=== PATIENT | female | born 1965 | race Two or more races ===

== ENCOUNTER 2025-01-27 13:11 | Outpatient (RCR) | payer OTHER, SELFPAY ==
--- NOTE | 2025-01-27 13:36 | PT.OIERPT ---
PT OP Initial Eval Patient Information Outpatient Physical Therapy Treatment Date: 01/27/25 Visit Reasons: RT shoulder pain Medical Diagnosis: M25.511 Start of Care: 01/27/25 Date of Onset: 6 months ago Smoking Status Smoking Status: Never smoker Initial Assessment Subjective: Pt is 59 yr old arabic speaking female who reports R shoulder pain that has been constant x6 months. It has been hurting for a couple years prior to that. 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 The pain limits lifting, buttoning pants. PMH: HTN, hypothyroidism, pre-DM Imaging: Xrays with provider Pt goal: to get rid of the pain Objective: R shoulder AROM: ? FF: 95 deg ? Abd: 90 deg ? ER: 75 deg ? HBB: to R glute with pain ? Strength: 3+/5 in all planes ? PROM: pain at end-range [place] Todd: positive Full can: positive Drop arm: positive Assessment: Pt presents with high tissue irritability with OH reaching that limits ROM, strength and function consistent with RC tear/tendinopathy. Pt not likely going to meet goals due to high pain level and chronicity of ssx. PT recommends further diagnostic imaging of R shoulder such as MRI. Eval followed by HEP printout. Short Term and Group Home Goals Eval and D/C Treatment Plan Eval and D/C Procedure Charges OP PT Eval Mod Complex 30 minutes: Yes
== END 2025-02-20 23:59 | disposition home or self-care (01) ==
LOC: CPTX 13:11
PROVIDERS: PCP Physician Assistant; Referring Provider Physician Assistant; Visit Provider Physician Assistant
DX: M25.511 Pain in right shoulder (principal); I10 Essential (primary) hypertension
CPT/HCPCS: 97162

== ENCOUNTER 2025-03-25 08:13 | Outpatient (AMB) | payer OTHER, SELFPAY ==
[2025-03-25 09:15] VITALS: BP 139/86; PULSE 64; RESP 14; TEMP 36.6; O2SAT 98; BMI 23.5
--- NOTE | 2025-03-25 09:15 | GYNCLNT_ITS ---
Vital Signs 03/25/25 09:15 Height 1.52 m Height Method Stated Weight 54.601 kg Weight Measurement Method Standing Scale BMI 23.5 BP 139/86 H Blood Pressure Source Automatic Cuff Blood Pressure Location Left Upper Arm Position Sitting Respiration 14 Pulse 64 Pulse Source Monitor Temp 98 F Temp Source Oral Pulse Oximetry (%) 98 Oxygen Delivery Method Room Air Allergies/Home Meds Allergies & Medications Allergies No Known Allergies Allergy (Verified 03/25/25 09:16) Medication Reconciliation levothyroxine 25 mcg capsule 25 mcg PO QDAY 03/25/25 [History Confirmed 03/25/25] lisinopril 20 mg-hydrochlorothiazide 25 mg tablet 1 tab PO QDAY 03/25/25 [History Confirmed 03/25/25] verapamil 240 mg 24 hr capsule,extended release 240 mg PO QDAY 03/25/25 [History Confirmed 03/25/25] Intake Visit Data Collection New Patient or Established: New Patient not seen in past 3 years at [facility] (considered New) Reason for Visit:: PROLAPSE Seen by Clinical Staff ONLY (RN/MA): No Assistant Press Operator Required: No Do You Feel Safe at Home: Yes Authorities Contacted: N/A PCP or OBGYN visit in last 3 months: Yes Hx Now: No Are you currently on any form of Control: No Pain Present Currently: No Pain Scale Used: Low-Michelle/Numerical Pain scale:: 0 Smoking Status Smoking Status: Never smoker 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 1. Little interest or pleasure in doing things: not at all 2. Feeling down, depressed, or hopeless: not at all Total score: 0 PHQ-9 3. Trouble falling or staying asleep, or sleeping too much: Not at all 4. Feeling tired or having little energy: Not at all 5. Poor appetite or overeating: Not at all 6. Feeling bad about yourself - or that you are a failure or have let yourself or your family down: Not at all 7. Trouble concentrating on things, such as reading the newspaper or watching television: Not at all 8. Moving or speaking so slowly that other people could have noticed? - Or the opposite - being so fidgety or restless that you have been moving around a lot more than usual: not at all 9. Thoughts that you would be better off or of hurting yourself in some way: Not at all Total score: 0 Source: Developed by Drs. Maxime Kelly, Zenaida Cedillo, Jose Loyola and colleagues, with an educational jah from [employer]. Depression screen completed yes Social History Living Situation History Marital Status: Lives With: Family Housing: House Tobacco History Smoking Status: Never smoker Second Hand Smoke Exposure: No Alcohol History Alcohol Intake: Never Domestic Abuse History Do You Feel Safe at Home: Yes History of Present Illness HPI Narrative Emily Kapoor presents with uterine prolapse over the past couple of months, describing a sensation of a bulge in her vagina. The prolapse has been impacting her daily life, particularly given her work at a [employer] which involves physical activity. The patient denies any associated bladder issues, constipation, or bowel problems. She has a history of five pregnancies with five deliveries, including two sections with one due to failure to progress and three vaginal deliveries. The patient has chronic hypertension and hyperthyroidism. She is menopausal and reports compliance with preventive screenings, including normal pap smears and mammograms. The patient is currently taking lisinopril for chronic hypertension and levothyroxine for hyperthyroidism. Her surgical history includes two C-sections and a procedure for kidney stones. She is a 60-year-old female with an obstetric history of . 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 ROS: Genitourinary: Positive for feeling of vaginal bulge. Negative for bladder issues. Gastrointestinal: Negative for constipation, bowel problems. Exam Narrative Physical exam: Gynecologic Exam External Genitalia: Normal female genitalia without lesions, rashes, or excoriations. No vulvar masses noted. Speculum Exam: Vaginal mucosa intact with mild atrophy. No ulcerations or abnormal discharge noted. Cervix visible at the level of the introitus at rest. Pelvic Organ Prolapse Findings: * Uterine prolapse: Cervix at introitus at rest; cervix descends beyond introitus with Valsalva/straining. * Cystocele: Anterior vaginal wall bulge noted, consistent with cystocele. * Posterior compartment: No significant rectocele identified. Bimanual Exam: Uterus mobile and nontender, prolapsed into introitus. No adnexal masses palpated bilaterally. Pelvic floor tone decreased. General General Appearance: alert, in no apparent distress and healthy appearing Head Head exam: atraumatic Neck Neck exam: Present normal inspection and trachea midline Chest Chest inspection: Present normal inspection and symmetric chest wall rise External exam: Present normal external exam; Absent tenderness Neuro Neurological exam: Present oriented X3 Psych Psychiatric exam: Present normal affect and normal mood Office Procedures OB Clinic LOC & Office Proc's Nursing/Assessment Patient Status: Established Patient OB Clinic Nursing Assessment: Medication Reconciliation, Update PMH in EMR and Vital Signs OB Clinic Coordination of Care: Complex Care and Chronic Disease 1-5, Consent,records obtained, informed consent, Education Simp Pt/Fam, 1 Ins Authorization, Lab and Imaging orders, Results/Orders obtained and Staff clarify orders Established Patient Charge Established Patient Point Assignment: 120 Established Patient Point Charge: EP Level 4 (120-155) Assessment & Plan Diagnosis / Problem List (1) Uterine prolapse: Status: Acute Plan Uterine Prolapse: - Significant uterine prolapse with vaginal bulge present for couple of months. - Patient reports feeling bulge in vagina but denies associated bladder issues, constipation, or bowel problems. - Contributing factors include multiparity () and occupation involving heavy lifting. Plan: - Recommend vaginal hysterectomy with anterior-posterior repair due to patient's age and activity level. - Discuss surgical procedure details: ? Involves removing uterus and tightening bladder and back coats ? Same-day discharge from hospital ? Recovery period: 2-3 weeks with 1 month off work due to heavy lifting requirements ? Expected pain for first 3-5 days - Alternative option discussed: pessary insertion with silicone cube requiring monthly cleaning. - Obtain insurance approval for surgery (approximately 2 weeks). - Tentatively schedule surgery for early April. - Clinic to call patient to coordinate surgery date. - Patient advised to consider options and ask further questions before operation. - Informed patient that bladder tightening should help with frequent urination.
== END 2025-03-25 09:58 | disposition home or self-care (01) ==
PROVIDERS: PCP Physician Assistant; Referring Provider Physician Assistant; Supervising Provider Obstetrics & Gynecology; Visit Provider Obstetrics & Gynecology
DX: N81.4 Uterovaginal prolapse, unspecified (principal); I10 Essential (primary) hypertension; E05.90 Thyrotoxicosis, unspecified without thyrotoxic crisis or storm; Z79.899 Other long term (current) drug therapy; Z79.890 Hormone replacement therapy
CPT/HCPCS: 99214; G0463

== ENCOUNTER 2025-04-29 11:17 | Outpatient (AMB) | payer OTHER, SELFPAY ==
[2025-04-29 11:20] VITALS: BP 134/81; PULSE 64; RESP 14; TEMP 36.6; O2SAT 98; BMI 24.0
--- NOTE | 2025-04-29 11:20 | AMB.GYNCLNOT ---
Vital Signs 04/29/25 11:20 Height 1.52 m Height Method Stated Weight 55.565 kg Weight Measurement Method Standing Scale BMI 24.0 BP 134/81 H Blood Pressure Source Automatic Cuff Blood Pressure Location Left Upper Arm Position Sitting Respiration 14 Pulse 64 Pulse Source Monitor Temp 97.8 F Temp Source Oral Pulse Oximetry (%) 98 Oxygen Delivery Method Room Air Allergies/Home Meds Allergies & Medications Allergies No Known Allergies Allergy (Verified 04/29/25 11:30) Medication Reconciliation levothyroxine 25 mcg capsule 25 mcg PO QDAY 03/25/25 [History Confirmed 04/29/25] lisinopril 20 mg-hydrochlorothiazide 25 mg tablet 1 tab PO QDAY 03/25/25 [History Confirmed 04/29/25] verapamil 240 mg 24 hr capsule,extended release 240 mg PO QDAY 03/25/25 [History Confirmed 04/29/25] Intake Visit Data Collection New Patient or Established: Established Patient (seen at [facility] within 3 years) Reason for Visit:: PRE OP Seen by Clinical Staff ONLY (RN/MA): No Tank Pumper Required: No Do You Feel Safe at Home: Yes Authorities Contacted: N/A PCP or OBGYN visit in last 3 months: Yes Hx Now: No Are you currently on any form of Control: No Pain Present Currently: No Pain Scale Used: Low-Michelle/Numerical Pain scale:: 0 Smoking Status Smoking Status: Never smoker 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 Menopausal: Yes If menopausal, at what age did it occur: 49 Currently sexually active: No If not currently sexually active, have you ever been sexually active: Yes NETWORK SUPPORT MANAGER: Past Medical History Past Medical History: No Hx Neurological Disorders, Yes Hx Hypothyroidism, Yes Hx Cardiac Disorders, Yes Hx Hypertension, No Hx Cancer, No Hx Blood Disorders, No Hx Gastrointestinal Disorders, No Hx Renal Disease, No Hx Diabetes Mellitus Type 1 and No Hx Diabetes Mellitus Type 2 Questionnaires Covid-19 Vaccine Questionnaire Has patient been vacinated for Covid-19 Have you been vacinated for Covid-19: Yes PHQ-9 PHQ-2 Over the last 2 weeks, how often have you been bothered by any of the following problems? 1. Little interest or pleasure in doing things: not at all 2. Feeling down, depressed, or hopeless: not at all Total score: 0 PHQ-9 3. Trouble falling or staying asleep, or sleeping too much: Not at all 4. Feeling tired or having little energy: Not at all 5. Poor appetite or overeating: Not at all 6. Feeling bad about yourself - or that you are a failure or have let yourself or your family down: Not at all 7. Trouble concentrating on things, such as reading the newspaper or watching television: Not at all 8. Moving or speaking so slowly that other people could have noticed? - Or the opposite - being so fidgety or restless that you have been moving around a lot more than usual: not at all 9. Thoughts that you would be better off or of hurting yourself in some way: Not at all Total score: 0 Source: Developed by Drs. Maxime Kelly, Zenaida Cedillo, Jose Loyola and colleagues, with an educational jah from [employer]. Depression screen completed yes Social History Living Situation History Lives With: Family Housing: House Tobacco History Smoking Status: Never smoker Second Hand Smoke Exposure: No Alcohol History Alcohol Intake: Never Domestic Abuse History Do You Feel Safe at Home: Yes History of Present Illness HPI Narrative Emily Kapoor presents for a preoperative visit in preparation for a total vaginal hysterectomy with anterior-posterior repair scheduled in 2 days. She has uterine prolapse, with the uterus pulling everything down, which will be addressed through the combined surgical procedure. 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 ROS: Negative except as stated above, limited to NETWORK SUPPORT MANAGER and pertinent complaints. Exam General General Appearance: alert, in no apparent distress and healthy appearing Head Head exam: atraumatic Neck Neck exam: Present normal inspection and trachea midline Chest Chest inspection: Present normal inspection and symmetric chest wall rise External exam: Present normal external exam; Absent tenderness Neuro Neurological exam: Present oriented X3 Psych Psychiatric exam: Present normal affect and normal mood Office Procedures OBC Clinic LOC & Office Proc's Nursing/Assessment Patient Status: Established Patient OB Clinic Nursing Assessment: Medication Reconciliation, Update PMH in EMR and Vital Signs OB Clinic Coordination of Care: Complex Care and Chronic Disease 1-5, Consent,records obtained, informed consent, Education Simp Pt/Fam, 1 Ins Authorization, Results/Orders obtained and Staff clarify orders Established Patient Charge Established Patient Point Assignment: 105 Established Patient Point Charge: EP Level 3 (80-115) Assessment & Plan Diagnosis / Problem List (1) Uterine prolapse: Status: Acute Plan Uterine Prolapse: - Patient has uterine prolapse with the uterus pulling everything down, requiring surgical intervention. - The uterus is described as small in size. Plan: - Total vaginal hysterectomy with anterior-posterior repair scheduled for (May 02). - Procedure will be performed entirely vaginally with possible laparoscopic assistance if needed (approximately 1% chance if scar tissue or adhesions encountered). - Patient to arrive 2 hours before surgery for preparation including IV placement and laboratory studies. - Procedure duration approximately 1-1.5 hours. - Postoperative packing with medicated sponge to promote healing, to be removed evening of surgery. - Overnight hospital stay for observation given patient's age and pain management. - Discharge criteria: able to urinate, eat, and ambulate to bathroom. - Postoperative activity restrictions: ? First 5-6 days: bed rest (may shower, sit to eat, watch TV) ? After 1 week: may drive, go to store, walk 20-25 minutes at a time ? After 2 weeks: most restrictions lifted except no lifting >30 pounds ? After 1 month: all restrictions removed, may return to work - Initial return to work on light duty given employment at [employer]. - Follow-up visits every 2 weeks until cleared. - Work excuse note provided for 1 month with extension as needed. - Patient counseled that ovaries will not be removed so hormones unchanged. - Expected postoperative course includes pressure sensation from dissolving sutures over 45 days. - No significant bleeding expected postoperatively.
== END 2025-04-29 11:44 | disposition home or self-care (01) ==
LOC: HODSOBC 11:17
PROVIDERS: PCP Physician Assistant; Referring Provider Physician Assistant; Supervising Provider Obstetrics & Gynecology; Visit Provider Obstetrics & Gynecology
DX: N81.4 Uterovaginal prolapse, unspecified (principal)
CPT/HCPCS: 99213; G0463

== ENCOUNTER 2025-05-01 13:49 | Observation (INO) | payer OTHER, SELFPAY ==
[2025-04-25 10:11] VITALS: BMI 25.2
--- NOTE | 2025-04-25 10:47 | EKG_ITS ---
[facility] Test Date: 2025-04-25 Pat Name: MOMO DUTTA Department: Room: - Gender: Female Pharmacy Stock Clerk: MT : [id number] Requested By: Matt Knutson Order Number: [id number] Reading MD: Matt Knutson Measurements Intervals [place] Rate: 54 P: 50 NV: 188 QRS: 21 QRSD: 101 T: 52 QT: 448 QTc: 427 Interpretive Statements SINUS BRADYCARDIA No previous ECG available for comparison /store/S0/[id number].pdf
[2025-04-25 11:35] LABS: Basophils # (Auto) 0.0 Thou/mm3 (0.0-0.2); Basophils % (Auto) 0 % (0-2.5); Eosinophils # (Auto) 0.2 Thou/mm3 (0.0-0.5); Eosinophils % (Auto) 2 % (0-10); Hematocrit 41.1 % (36.0-46.0); Hemoglobin 13.5 g/dL (12.0-16.0); Immature Granulocytes Auto 0.02 Thou/mm3 (0.00-0.00); Lymphocytes # (Auto) 3.3 Thou/mm3 (1.0-4.8); Lymphocytes % (Auto) 41 % (10-50); Mean Corpuscular HGB Conc 32.8 g/dl (31.0-37.0); Mean Corpuscular Hemoglobin 30.3 pg (25.0-35.0); Mean Corpuscular Volume 92 fL (80-100); Monocytes # (Auto) 0.6 Thou/mm3 (0.0-0.8); Monocytes % (Auto) 8 % (0-12); Neutrophils # (Auto) 4.0 Thou/mm3 (1.8-7.7); Neutrophils % (Auto) 49 % (37-80); Nucleated Red Blood Cell # 0.00 Thou/mm3 (0.00-0.00); Nucleated Red Blood Cell % 0 /100 WBC (0); Platelet Count 288 Thou/mm3 (140-440); RDW Standard Deviation 45.6 fL (36.4-46.3); Red Blood Count 4.45 Miln/mm3 (4.00-5.20); White Blood Count 8.1 Thou/mm3 (3.6-11.0)
[2025-04-25 11:51] LABS: Alanine Aminotransferase 13 U/L (10-49); Albumin, Serum 4.3 gm/dL (3.4-4.8); Albumin/Globulin Ratio 1.6 (1.2-2.2); Alkaline Phosphatase 101 U/L (46-116); Anion Gap 8 (7-16); Aspartate Amino Transferase 15 U/L (0-34); BUN/Creatinine Ratio 30 Ratio (12-20); Bilirubin,Total 0.5 mg/dL (0.3-1.2); Blood Urea Nitrogen 18 mg/dL (9-23); Calcium 9.3 mg/dL (8.3-10.6); Calcium (Corrected) 9.3 mg/dL (8.5-10.1); Carbon Dioxide 29.1 mMol/L (20.0-31.0); Chloride 106 mMol/L (98-107); Creatinine (Component) 0.6 mg/dL (0.6-1.3); Estimated Creatinine Clearance 72.3 mL/min (>60); Globulin 2.7 gm/dL (2.3-3.5); Glucose 87 mg/dL (74-106); Osmolality,Calculated 285 (275-295); Potassium 3.3 mMol/L (3.4-5.1); Sodium 143 mMol/L (136-145); Total Protein 7.0 gm/dL (5.7-8.2); eGFR > 60 See Note
[2025-05-01] VITALS (12 sets, daily range): BP systolic 108–161; BP diastolic 68–102; PULSE 50–76; RESP 10–20; TEMP 36.1–36.8; O2SAT 93–100; BMI 23.6
[2025-05-01] MEDS: RINGERS LACTATED 1000 ML 1,000 ML 20 ML IV (09:24)
--- NOTE | 2025-05-01 11:46 | PD.GYNPROC ---
Operative Note - MD SENIOR RESEARCH SCIENTIST Procedure Date of procedure: 05/01/25 Procedure Performed: Total vaginal hysterectomy and cystocele repair Indication: Third-degree uterine prolapse with cystocele Anesthesia type: General Procedure description: Informed consent was obtained and the patient was brought to the operating room. Identity was verified using two patient identifiers. General anesthesia was administered and the patient was placed in lithotomy position. The perineum and vagina were prepped and draped in the usual sterile fashion. A surgical timeout was performed. A weighted speculum was placed in the vagina. The cervix was visualized and grasped with a double-tooth tenaculum, then placed under gentle traction. Dilute vasopressin was injected circumferentially around the cervicovaginal junction. A circumferential incision was made with the Bovie cautery. A combination of sharp and blunt dissection was used to separate the vaginal mucosa up to the bladder reflection anteriorly. The same dissection was performed posteriorly, and the peritoneum was entered bluntly through the posterior cul-de-sac. A long duckbill weighted speculum was inserted posteriorly for exposure. Dissection was started on the left side. The left uterosacral ligament was clamped and divided using the ENSEAL device, followed by the left uterine vessels, and finally the left fallopian tube. The same procedure was performed on the right side: right uterosacral, right uterine vessels, and right fallopian tube were clamped and divided sequentially. The uterus was then flipped anteriorly with careful attention to protecting the bladder. The bladder peritoneum was divided using the ENSEAL, and the specimen was freed and handed off the field for pathology. The vaginal cuff was inspected and closed using 0 Vicryl in a running locked fashion. Hemostasis was confirmed. Attention was now turned to the cystocele repair portion of the procedure. The anterior vaginal wall was placed under traction, and dilute vasopressin was injected beneath the mucosa. A midline linear incision was made beginning just below the urethral meatus, extending 5 mm short of the vaginal cuff. The vaginal mucosa was sharply dissected off the underlying bladder using Metzenbaum scissors, with care taken to preserve bladder integrity. Dissection was performed bilaterally. Excess mucosa was trimmed from both sides. The underlying fascia was plicated in the midline, and the vaginal mucosa was reapproximated using 2-0 Vicryl in a running fashion. Hemostasis was satisfactory. Vaginal estrogen cream was applied to the repair site, and the vagina was packed with Kerlix gauze. All instruments were withdrawn. The patient was awakened from anesthesia and transferred to the recovery room in stable condition. All instrument, sponge, and lap counts were correct ?2. Estimated blood loss (ml): 50 Complications: none Surgical staff Operation Date: 05/01/25 10:30 Case Staff ELECTRONIC EQUIPMENT REPAIRER: Gianni Ashton RN First Assistant: Lexy Burton Diagnosis Discharge Diagnosis (1) Uterine prolapse: Status: Acute (2) Cystocele: Status: Acute Problem List Completed Was Problem List Reviewed/Reconciled?: Yes
[2025-05-01] MEDS: SODIUM CHLORIDE 0.9% 1000 ML 1,000 ML 200 ML IV (12:29)
--- NOTE | 2025-05-01 12:30 | SUR.PHASEI ---
pt tolerating ice chips without difficulty swallowing or n/v
--- NOTE | 2025-05-01 12:42 | SUR.PHASEI ---
attempted to call report, nurse unable to take report at this time, nurse stated she will call back in 30-40 minutes
[2025-05-01] MEDS: SODIUM CHLORIDE 0.9% 1000 ML 1,000 ML 75 ML IV (13:31)
--- NOTE | 2025-05-01 13:41 | SUR.PHASEI ---
pt awake, alert, able to follow commands, breathing unlabored, vaginal packing intact with peripad in place-no bleeding noted, report called to Luke FOSS, pt transferred to room at this time.
[2025-05-01] MEDS: KETOROLAC INJ 30 MG/ML VIAL IVP (17:53)
[2025-05-01] MEDS: ACETAMINOPHEN IVPB 1,000 MG/100 ML VIAL 250 MG IV (17:54)
[2025-05-01] MEDS: ONDANSETRON INJ 2 MG/ML INJ 2 ML 4 MG IV (17:57)
--- NOTE | 2025-05-01 19:28 | PC.NURSE ---
Dr. Allen arrived on unit to follow up with patient. Dr. Allen removed packing from patient's perineal area and per Dr. Allen to remove cathether.
[2025-05-01] MEDS: Milk Of Magnesia Susp 30 ML UDC PO (20:07)
[2025-05-02] VITALS (8 sets, daily range): BP systolic 99–122; BP diastolic 62–79; PULSE 60–72; RESP 17–95; TEMP 36.1–36.7; O2SAT 94–98
[2025-05-02] MEDS: ONDANSETRON INJ 2 MG/ML INJ 2 ML 4 MG IV ×2 (00:07→06:13)
[2025-05-02] MEDS: ACETAMINOPHEN IVPB 1,000 MG/100 ML VIAL 250 MG IV ×2 (00:07→06:12)
[2025-05-02] MEDS: KETOROLAC INJ 30 MG/ML VIAL IVP ×2 (00:07→06:13)
[2025-05-02 05:48] LABS: Basophils # (Auto) 0.0 Thou/mm3 (0.0-0.2); Basophils % (Auto) 0 % (0-2.5); Eosinophils # (Auto) 0.1 Thou/mm3 (0.0-0.5); Eosinophils % (Auto) 1 % (0-10); Hematocrit 36.0 % (36.0-46.0); Hemoglobin 12.0 g/dL (12.0-16.0); Immature Granulocytes Auto 0.05 Thou/mm3 (0.00-0.00); Lymphocytes # (Auto) 2.9 Thou/mm3 (1.0-4.8); Lymphocytes % (Auto) 21 % (10-50); Mean Corpuscular HGB Conc 33.3 g/dl (31.0-37.0); Mean Corpuscular Hemoglobin 30.4 pg (25.0-35.0); Mean Corpuscular Volume 91 fL (80-100); Monocytes # (Auto) 0.9 Thou/mm3 (0.0-0.8); Monocytes % (Auto) 6 % (0-12); Neutrophils # (Auto) 10.2 Thou/mm3 (1.8-7.7); Neutrophils % (Auto) 72 % (37-80); Nucleated Red Blood Cell # 0.00 Thou/mm3 (0.00-0.00); Nucleated Red Blood Cell % 0 /100 WBC (0); Platelet Count 215 Thou/mm3 (140-440); RDW Standard Deviation 43.8 fL (36.4-46.3); Red Blood Count 3.95 Miln/mm3 (4.00-5.20); White Blood Count 14.2 Thou/mm3 (3.6-11.0)
[2025-05-02 06:07] LABS: Anion Gap 9 (7-16); BUN/Creatinine Ratio 22 Ratio (12-20); Blood Urea Nitrogen 11 mg/dL (9-23); Calcium 8.7 mg/dL (8.3-10.6); Carbon Dioxide 28.7 mMol/L (20.0-31.0); Chloride 98 mMol/L (98-107); Creatinine (Component) 0.5 mg/dL (0.6-1.3); Estimated Creatinine Clearance 91.8 mL/min (>60); Glucose 84 mg/dL (74-106); Osmolality,Calculated 270 (275-295); Potassium 3.3 mMol/L (3.4-5.1); Sodium 136 mMol/L (136-145); eGFR > 60 See Note
[2025-05-02] MEDS: LEVOTHYROXINE SODIUM 25 MCG TABLET PO (06:13)
[2025-05-02] MEDS: DOCUSATE SOD 100 MG CAPSULE PO (08:12)
--- NOTE | 2025-05-02 09:42 | PC.SS ---
Patient Emily Aguilar is a 60 Year old female admitted for Total Vag. SS met with patient at bedside to discuss discharge plan and verify demographic information. Patient reports she lives at home with family. Patient reports her , Rinku Kapoor is her surrogate decision maker, [phone]. Patient is able to complete all ADL's independently and does not utilize any source of DME to assist with ambulation. Choice of pharmacy is [facility]. PCP Tessa Botello. At time of discharge patient will return back home. Next of kin: Rinku Kapoor Discharge plan: Home
--- NOTE | 2025-05-02 09:56 | PD.GYNPROG ---
Documentation for date of: 05/02/25 ELECTRONIC BENCH TECHNICIAN Subjective Subjective Interval history: Patient evaluated at bedside. Doing well this morning. Vaginal packing removed. Minimal amount of bloodstained discharge. Gabriel catheter was removed and patient was able to void. Denies any chest pain or shortness of breath or any other problems Exam Vital Signs Temp Pulse Resp BP Pulse Ox O2 Del Method O2 Flow Rate 97.0 F 62 17 122/77 98 Room Air 3 05/02/25 08:00 05/02/25 08:13 05/02/25 08:00 05/02/25 08:13 05/02/25 08:00 05/02/25 08:00 05/01/25 12:12 Constitutional Constitutional: no acute distress Routine HEENT Exam Head: Present normocephalic and atraumatic Eye: Present EOMI and PERRL ENT: Present mucous membranes moist Routine Neck Exam Neck: Present supple and trachea midline Routine Respiratory Exam Respiratory: Present chest non-tender, lungs clear, normal breath sounds and no resp distress Routine Cardiovascular Exam Cardiovascular: Present RRR Routine Abdominal Exam Abdominal: Present soft and normoactive bowel sounds Routine Extremities Exam Extremities: Present full ROM Routine Skin Exam Skin: Present intact and dry Routine Neurological Exam Neurological: Present alert, oriented X3 and CN II-XII intact Routine Psychiatric Exam Psychiatric: Present normal affect and normal thought process Urinary Catheter Management Cath placed during this visit: no ELECTRONIC BENCH TECHNICIAN - PN: Obj Data Labs 05/02/25 04:25 05/02/25 04:25 Labs: Laboratory Results - last 24 hr 05/02/25 04:25 WBC 14.2 H D RBC 3.95 L Hgb 12.0 Hct 36.0 MCV 91 MCH 30.4 MCHC 33.3 RDW Std Deviation 43.8 Plt Count 215 D Neut % (Auto) 72 Lymph % (Auto) 21 [place]aver % (Auto) 6 Eos % (Auto) 1 Baso % (Auto) 0 Neut # (Auto) 10.2 H Lymph # (Auto) 2.9 Beaver # (Auto) 0.9 H Eos # (Auto) 0.1 Baso # (Auto) 0.0 Immature Gran # (Auto) 0.05 H Absolute Nucleated RBC 0.00 Immature Gran % 0 Nucleated RBC % 0 Sodium 136 Potassium 3.3 L Chloride 98 Carbon Dioxide 28.7 Anion Gap 9 BUN 11 Creatinine 0.5 L Estim Creat Clear Calc 91.8 eGFR > 60 BUN/Creatinine Ratio 22 H Glucose 84 Calculated Osmolality 270 L Calcium 8.7 ELECTRONIC BENCH TECHNICIAN - A/P Assessment and plan (1) Uterine prolapse: Status: Acute (2) Cystocele: Status: Acute Assessment and plan: Patient is postoperative day #1 status post total vaginal hysterectomy and cystocele repair Discharge home today. Discharge instructions were reviewed with the patient. Follow-up in the office in 2 weeks. Postoperative Procedures: Procedures Operation Date: 05/01/25 10:30 Actual Procedure Side Surgeon p Hysterectomy, Vaginal w/ Anterior Repair Jeffy Allen MD Time Spent With Patient Time: Total time spent is greater than 50% in coordination of care (as documented) at patient's floor/unit and/or counseling patient: Time with patient: less than 15 minutes
--- NOTE | 2025-05-02 10:02 | ESDS_ITS ---
Planned Discharge Date 05/02/25 DS: Providers Provider Date of admission: 05/01/25 13:49 Primary care physician: Tessa Botello PA-C Admitting Provider: Jeffy Allen MD Attending Provider on Admission: Jeffy Allen MD Attending Provider on DC: Jeffy Allen MD Discharging Provider: Jeffy Allen MD DS: Diagnosis Discharge Diagnosis (1) Cystocele: Status: Acute (2) Uterine prolapse: Status: Acute Problem List Completed Was Problem List Reviewed/Reconciled?: Yes Hospital Course Hospital Course Hospital course: Patient evaluated at bedside. Doing well this morning. Vaginal packing removed. Minimal amount of bloodstained discharge. Gabriel catheter was removed and patient was able to void. 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 Temp Pulse Resp BP Pulse Ox O2 Del Method O2 Flow Rate 97.0 F 62 17 122/77 98 Room Air 3 05/02/25 08:00 05/02/25 08:13 05/02/25 08:00 05/02/25 08:13 05/02/25 08:00 05/02/25 08:00 05/01/25 12:12 Discharge Plan Plan Patient Disposition: HOME (Self Care) Patient condition on transfer: Stable Prescriptions/Referrals Prescriptions/Med Rec: New hydrocodone-acetaminophen 5-325 mg tablet 1 tab PO Q6H MDD 4 PRN (Reason: pain) 5 Days Qty: 20 0RF docusate sodium [Stool Softener] 100 mg capsule 100 mg PO QDAY 30 Days Qty: 30 0RF ibuprofen 600 mg tablet 600 mg PO Q6H MDD 4 PRN (Reason: fever or pain) 10 Days Qty: 40 0RF Continued levothyroxine 25 mcg capsule 25 mcg PO QDAY lisinopril-hydrochlorothiazide 20-25 mg tablet 1 tab PO QDAY verapamil 240 mg capsule,ext rel. pellets 24 hr 240 mg PO QDAY Referrals: Jeffy Allen MD [Physician, [facility]] Tessa Botello PA-C [Primary Care Provider, Family Practice] Patient/Caregiver Discharge Instructions Meds to Beds: Yes Discharge Activity: activity as tolerated Print Language: Malay Stand Alone Forms: [employer] Award Info., Patient Portal Info Letter, Work/Release Restrictions Discharge Order Discharge Orders: Discharge (Routine); Ordered 05/02/25 Ordered By: Jeffy Allen
--- NOTE | 2025-05-02 12:22 | CHAP ---
Patient was visited by the Spiritual care Volunteer who prayed silently for them. (Volunteer was in the hospital from 10:20-12:22)
== END 2025-05-02 12:00 | disposition home or self-care (01) ==
LOC: S3SX 05-02 08:43
PROVIDERS: Admitting Provider Obstetrics & Gynecology; PCP Physician Assistant; Referring Provider Obstetrics & Gynecology; Visit Provider Obstetrics & Gynecology
PROC: (CPT 58260; principal; 2025-05-01 10:15)
DX: N81.3 Complete uterovaginal prolapse (principal); Z01.810 Encounter for preprocedural cardiovascular examination
CPT/HCPCS: 58260; 36415; 80048; 80053; 85025; 86850; 86900; 86901; 93005; 96365; 96375; 96376; A4217; A4649; G0378; J0131; J0690; J1171; J1885; J2250; J2274; J2312; J2405; J2598; J2704; J3010; J3490; J7030; J7120; A9270; J2270

== ENCOUNTER 2025-05-16 09:19 | Outpatient (AMB) | payer OTHER, SELFPAY ==
[2025-05-16 09:43] VITALS: BP 138/88; PULSE 75; RESP 18; TEMP 36.2; O2SAT 97
--- NOTE | 2025-05-16 09:43 | GYNCLNT_ITS ---
Vital Signs 05/16/25 09:43 Weight 55.508 kg Weight Measurement Method Standing Scale BP 138/88 H Blood Pressure Source Automatic Cuff Blood Pressure Location Left Upper Arm Position Sitting Respiration 18 Pulse 75 Pulse Source Monitor Temp 97.2 F Temp Source Oral Pulse Oximetry (%) 97 Oxygen Delivery Method Room Air Allergies/Home Meds Allergies & Medications Allergies No Known Allergies Allergy (Verified 05/16/25 09:44) Medication Reconciliation levothyroxine 25 mcg capsule 25 mcg PO QDAY 03/25/25 [History Confirmed 05/16/25] lisinopril 20 mg-hydrochlorothiazide 25 mg tablet 1 tab PO QDAY 03/25/25 [History Confirmed 05/16/25] verapamil 240 mg 24 hr capsule,extended release 240 mg PO QDAY 03/25/25 [History Confirmed 05/16/25] docusate sodium 100 mg capsule (Stool Softener) 100 mg PO QDAY 30 days #30 caps 05/02/25 [Rx Confirmed 05/16/25] estradiol 0.01% (0.1 mg/gram) vaginal cream 1 g vaginal QDAY 30 days #42.5 grams 05/16/25 [Rx] levofloxacin 500 mg tablet 500 mg PO QDAY 7 days #7 tabs 05/16/25 [Rx] Intake Visit Data Collection New Patient or Established: Established Patient (seen at [facility] within 3 years) Reason for Visit:: POST O P Seen by Clinical Staff ONLY (RN/MA): No Mainframe Systems Programmer Required: No Do You Feel Safe at Home: Yes Authorities Contacted: N/A PCP or OBGYN visit in last 3 months: Yes Date of Last PCP or OBGYN visit: 05/23/25 Hx Now: Yes Are you currently on any form of Control: No Pain Present Currently: No Pain Scale Used: Low-Michelle/Numerical Smoking Status Smoking Status: Never smoker Immunizations Flu Vaccine in the Last 12 Months: No Flu Vaccine Exclusion Criteria: No Exclusion Criteria 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 Menstrual regularity: regular Flow: normal Monthly: Yes Menopausal: No Currently sexually active: No 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 1. Little interest or pleasure in doing things: not at all 2. Feeling down, depressed, or hopeless: not at all Total score: 0 PHQ-9 3. Trouble falling or staying asleep, or sleeping too much: Not at all 4. Feeling tired or having little energy: Not at all 5. Poor appetite or overeating: Not at all 6. Feeling bad about yourself - or that you are a failure or have let yourself or your family down: Not at all 7. Trouble concentrating on things, such as reading the newspaper or watching television: Not at all 8. Moving or speaking so slowly that other people could have noticed? - Or the opposite - being so fidgety or restless that you have been moving around a lot more than usual: not at all 9. Thoughts that you would be better off or of hurting yourself in some way: Not at all Total score: 0 If you checked off any problems, how difficult have these problems made it for you to do your work, take care of things at home, or get along with other people?: not difficult at all Source: Developed by Drs. Maxime Kelly, Zenaida Cedillo, Jose Loyola and colleagues, with an educational jah from [employer]. Depression screen completed yes Social History Living Situation History Marital Status: Single Lives With: Family Housing: House Tobacco History Smoking Status: Never smoker Second Hand Smoke Exposure: No Alcohol History Alcohol Intake: Never Domestic Abuse History Do You Feel Safe at Home: Yes History of Present Illness HPI Narrative Emily Kapoor presents with pain when urinating 2 weeks following total vaginal hysterectomy with cystocele repair performed on May 01, 2025. She describes the pain as a squeezing sensation that occurs every time she tries to urinate. She also noticed a white area or discharge in one specific spot, which she first observed last week following her surgery. She has a history of total vaginal hysterectomy with cystocele repair on May 01, 2025. The patient is currently on medical leave from work, with disability coverage for 4 weeks post-surgery, and anticipates returning to work June 23. ROS: Genitourinary: Positive for pain with urination. Exam Narrative Physical exam: - Skin: White discoloration noted in genital area consistent with instrument contact purcell from recent surgical procedure. Office Procedures OBC Clinic LOC & Office Proc's Nursing/Assessment Patient Status: Established Patient OB Clinic Nursing Assessment: Medication Reconciliation, Update PMH in EMR and Vital Signs OB Clinic Coordination of Care: Consent,records obtained, informed consent, Education Simp Pt/Fam, Lab and Imaging orders, Results/Orders obtained and Staff clarify orders Established Patient Charge Established Patient Point Assignment: 80 Established Patient Point Charge: EP Level 3 (80-115) Assessment & Plan Diagnosis / Problem List (1) Postmenopause atrophic vaginitis: Status: Acute (2) Urinary tract infection, site not specified: Status: Acute Plan Postoperative dysuria: - Pain with urination 2 weeks following total vaginal hysterectomy with cystocele repair. - Expected given the bladder repair component of the surgery, with the bladder prolapse repair area remaining sore and painful for up to a month postoperatively. - Dysuria manifests as a squeezing sensation during urination. Plan: - Prescribe antibiotic for urinary tract infection prevention. - Prescribe estrogen hormone cream for topical application to speed healing in the surgical area. - Patient to use cream on the outside. Postoperative vaginal findings: - White discharge/appearance on one side of the vaginal area since last week. - Physical examination revealed findings consistent with instrument contact purcell from surgical retractors used during the hysterectomy procedure. - [place] purcell are from rubbing against instruments used to maintain visualization during surgery and are not indicative of infection. Plan: - Reassurance provided that findings are normal postoperative changes. - Expected resolution by next visit in 2 weeks. Postoperative recovery and work status: - Patient is 2 weeks postoperative from total vaginal hysterectomy with cystocele repair. - Current disability period is 4 weeks from surgery date. - Patient requires work documentation and potential extension of leave. Plan: - Provide work note for current absence. - Plan to extend leave through May with return to work June 23. - Patient to bring disability paperwork when closer to 4-week afsaneh for comp letion. - Follow-up visit scheduled in 2 weeks for postoperative check.
== END 2025-05-16 10:06 | disposition home or self-care (01) ==
LOC: HODSOBC 09:19
PROVIDERS: PCP Physician Assistant; Referring Provider Physician Assistant; Supervising Provider Obstetrics & Gynecology; Visit Provider Obstetrics & Gynecology
DX: N95.2 Postmenopausal atrophic vaginitis (principal); N39.0 Urinary tract infection, site not specified; I10 Essential (primary) hypertension; E03.9 Hypothyroidism, unspecified; Z90.710 Acquired absence of both cervix and uterus; Z98.890 Other specified postprocedural states; Z79.890 Hormone replacement therapy; Z79.899 Other long term (current) drug therapy
CPT/HCPCS: 99213; G0463

== ENCOUNTER 2025-05-27 09:31 | Outpatient (AMB) | payer OTHER, SELFPAY ==
[2025-05-27 09:42] VITALS: BP 132/79; PULSE 66; RESP 18; TEMP 36.6; O2SAT 97; BMI 23.8
--- NOTE | 2025-05-27 09:42 | AMB.GYNCLNOT ---
Vital Signs 05/27/25 09:42 Height 1.52 m Height Method Stated Weight 54.941 kg Weight Measurement Method Standing Scale BMI 23.8 BP 132/79 H Blood Pressure Source Automatic Cuff Blood Pressure Location Right Upper Arm Position Sitting Respiration 18 Pulse 66 Pulse Source Monitor Temp 97.8 F Temp Source Temporal Artery Scan Pulse Oximetry (%) 97 Oxygen Delivery Method Room Air Allergies/Home Meds Allergies & Medications Allergies No Known Allergies Allergy (Verified 05/27/25 09:44) Medication Reconciliation levothyroxine 25 mcg capsule 25 mcg PO QDAY 03/25/25 [History Confirmed 05/27/25] lisinopril 20 mg-hydrochlorothiazide 25 mg tablet 1 tab PO QDAY 03/25/25 [History Confirmed 05/27/25] verapamil 240 mg 24 hr capsule,extended release 240 mg PO QDAY 03/25/25 [History Confirmed 05/27/25] docusate sodium 100 mg capsule (Stool Softener) 100 mg PO QDAY 30 days #30 caps 05/02/25 [Rx Confirmed 05/27/25] estradiol 0.01% (0.1 mg/gram) vaginal cream 1 g vaginal Q3D 30 days #42.5 grams 05/27/25 [Rx] Intake Visit Data Collection New Patient or Established: Established Patient (seen at [facility] within 3 years) Reason for Visit:: POST OP FOLLOW UP Seen by Clinical Staff ONLY (RN/MA): No Maritime Pilot Required: No Do You Feel Safe at Home: Yes Authorities Contacted: N/A PCP or OBGYN visit in last 3 months: Yes Date of Last PCP or OBGYN visit: 05/16/25 Hx Now: Yes Are you currently on any form of Control: No Pain Present Currently: No Pain Scale Used: Low-Michelle/Numerical Pain scale:: 0 Smoking Status Smoking Status: Never smoker Immunizations Flu Vaccine in the Last 12 Months: No Flu Vaccine Exclusion Criteria: No Exclusion Criteria 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 1. Little interest or pleasure in doing things: not at all 2. Feeling down, depressed, or hopeless: not at all Total score: 0 PHQ-9 3. Trouble falling or staying asleep, or sleeping too much: Not at all 4. Feeling tired or having little energy: Not at all 5. Poor appetite or overeating: Not at all 6. Feeling bad about yourself - or that you are a failure or have let yourself or your family down: Not at all 7. Trouble concentrating on things, such as reading the newspaper or watching television: Not at all 8. Moving or speaking so slowly that other people could have noticed? - Or the opposite - being so fidgety or restless that you have been moving around a lot more than usual: not at all 9. Thoughts that you would be better off or of hurting yourself in some way: Not at all Total score: 0 If you checked off any problems, how difficult have these problems made it for you to do your work, take care of things at home, or get along with other people?: not difficult at all Source: Developed by Drs. Maxime Kelly, Zenaiad Cedillo, Jose Loyola and colleagues, with an educational jah from [employer]. Depression screen completed yes Social History Living Situation History Marital Status: Unknown Lives With: Family Housing: House Tobacco History Smoking Status: Never smoker Second Hand Smoke Exposure: No Alcohol History Alcohol Intake: Never Domestic Abuse History Do You Feel Safe at Home: Yes History of Present Illness HPI Narrative Emily Kapoor presents for a post-operative follow-up visit after bladder prolapse repair surgery. The patient completed her prescribed antibiotic course as directed. She experienced some bleeding following the surgery, which appears to be part of the normal healing process. The patient reports bladder discomfort, which is expected during the recovery period as the surgical site continues to heal. She was previously prescribed an estrogen ointment but has not yet obtained it from the pharmacy. She has a history of bladder prolapse repair surgery which is recent and currently in the healing process. The patient finished taking her antibiotic. She has disability forms and appears to be seeking work disability extension. 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 Exam Narrative Physical exam: - Gynecologic: Surgical site examined. No evidence of infection noted. Healing process appears appropriate post-surgery. Some bleeding observed, consistent with post-surgical healing. General General Appearance: alert, in no apparent distress and healthy appearing Head Head exam: atraumatic Neck Neck exam: Present normal inspection and trachea midline Chest Chest inspection: Present normal inspection and symmetric chest wall rise External exam: Present normal external exam; Absent tenderness Neuro Neurological exam: Present oriented X3 Psych Psychiatric exam: Present normal affect and normal mood Office Procedures OBC Clinic LOC & Office Proc's Nursing/Assessment Patient Status: Established Patient OB Clinic Nursing Assessment: Medication Reconciliation, Update PMH in EMR and Vital Signs OB Clinic Coordination of Care: Complex Care and Chronic Disease 1-5, Education Complex Pt/Fam, Consent,records obtained, informed consent, Results/Orders obtained and Staff clarify orders Established Patient Charge Established Patient Point Assignment: 95 Established Patient Point Charge: EP Level 3 (80-115) Assessment & Plan Diagnosis / Problem List (1) Urinary tract infection, site not specified: Status: Acute (2) Postmenopause atrophic vaginitis: Status: Acute (3) Cystocele: Status: Acute Plan Post-operative bladder prolapse repair: - Patient healing appropriately following bladder prolapse repair surgery. - No evidence of infection with changes consistent with normal surgical healing process. - Post-operative bleeding attributed to bladder discomfort during healing phase. - Examination reveals good healing progress. Plan: - Continue estrogen ointment. - Bladder training: avoid frequent urination, allow bladder to become full before voiding to promote healing through stretching effect and prevent spasms that cause pain. - Patient advised that bladder discomfort is expected during healing process.
== END 2025-05-27 09:57 | disposition home or self-care (01) ==
LOC: HODSOBC 09:31
PROVIDERS: PCP Physician Assistant; Referring Provider Physician Assistant; Supervising Provider Obstetrics & Gynecology; Visit Provider Obstetrics & Gynecology
DX: Z48.816 Encounter for surgical aftercare following surgery on the genitourinary system (principal); N39.0 Urinary tract infection, site not specified; N95.2 Postmenopausal atrophic vaginitis; N81.10 Cystocele, unspecified; N99.820 Postprocedural hemorrhage of a genitourinary system organ or structure following a genitourinary system procedure; I10 Essential (primary) hypertension; E03.9 Hypothyroidism, unspecified; Z79.890 Hormone replacement therapy; Z79.899 Other long term (current) drug therapy; Y83.8 Other surgical procedures as the cause of abnormal reaction of the patient, or of later complication, without mention of misadventure at the time of the procedure
CPT/HCPCS: 99213; G0463

== ENCOUNTER 2025-06-13 10:07 | Outpatient (AMB) | payer OTHER, SELFPAY ==
--- NOTE | 2025-06-13 10:16 | GYNCLNT_ITS ---
Vital Signs 06/13/25 10:17 Height 1.52 m Height Method Stated Weight 56.302 kg Weight Measurement Method Standing Scale BMI 24.3 BP 121/80 Blood Pressure Source Automatic Cuff Blood Pressure Location Left Upper Arm Position Sitting Respiration 18 Pulse 70 Pulse Source Monitor Temp 97.2 F Temp Source Oral Pulse Oximetry (%) 98 Oxygen Delivery Method Room Air Allergies/Home Meds Allergies & Medications Allergies No Known Allergies Allergy (Verified 06/13/25 10:18) Medication Reconciliation levothyroxine 25 mcg capsule 25 mcg PO QDAY 03/25/25 [History Confirmed 06/13/25] lisinopril 20 mg-hydrochlorothiazide 25 mg tablet 1 tab PO QDAY 03/25/25 [History Confirmed 06/13/25] verapamil 240 mg 24 hr capsule,extended release 240 mg PO QDAY 03/25/25 [History Confirmed 06/13/25] estradiol 0.01% (0.1 mg/gram) vaginal cream 1 g vaginal Q3D 30 days #42.5 grams 05/27/25 [Rx Confirmed 06/13/25] Intake Visit Data Collection New Patient or Established: Established Patient (seen at [facility] within 3 years) Reason for Visit:: OBC Seen by Clinical Staff ONLY (RN/MA): No Software Development Coordinator Required: Yes Software Development Coordinator's name/title: KOBEMANFRED HERNANDEZ Do You Feel Safe at Home: Yes Authorities Contacted: N/A PCP or OBGYN visit in last 3 months: Yes Date of Last PCP or OBGYN visit: 05/27/25 Hx Now: No Are you currently on any form of Control: No Pain Present Currently: No Pain Scale Used: Low-Michelle/Numerical Pain scale:: 0 Smoking Status Smoking Status: Never smoker Immunizations Flu Vaccine in the Last 12 Months: Yes Flu Vaccine Exclusion Criteria: Already Received 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 1. Little interest or pleasure in doing things: not at all PHQ-9 8. Moving or speaking so slowly that other people could have noticed? - Or the opposite - being so fidgety or restless that you have been moving around a lot more than usual: not at all Source: Developed by Drs. Maxime Kelly, Zenaida Cedillo, Jose Loyola and colleagues, with an educational jah from [employer]. Social History Living Situation History Lives With: Family Housing: House Tobacco History Smoking Status: Never smoker Second Hand Smoke Exposure: No Alcohol History Alcohol Intake: Never Domestic Abuse History Do You Feel Safe at Home: Yes History of Present Illness HPI Narrative Emily Kapoor presents for a follow-up visit related to work clearance and disability status. She is scheduled to return to work on June 23 and is seeking medical clearance. The patient reports that everything is going well overall. She has been on disability leave but did not specify the underlying condition or duration of her time off work. No acute complaints or concerning symptoms were reported during this visit. She is currently on disability and scheduled to return to work June 23. ROS: Negative except as stated above, limited to MICROSOFT SOLUTIONS ARCHITECT and pertinent complaints. Exam General General Appearance: alert, in no apparent distress and healthy appearing Head Head exam: atraumatic Neck Neck exam: Present normal inspection and trachea midline Chest Chest inspection: Present normal inspection and symmetric chest wall rise External exam: Present normal external exam; Absent tenderness Neuro Neurological exam: Present oriented X3 Psych Psychiatric exam: Present normal affect and normal mood Office Procedures OBC Clinic LOC & Office Proc's Nursing/Assessment Patient Status: Established Patient OB Clinic Nursing Assessment: Medication Reconciliation, Update PMH in EMR and Vital Signs OB Clinic Coordination of Care: Consent,records obtained, informed consent, Education Simp Pt/Fam, Lab and Imaging orders, Results/Orders obtained and Staff clarify orders Established Patient Charge Established Patient Point Assignment: 80 Established Patient Point Charge: EP Level 3 (80-115) Assessment & Plan Diagnosis / Problem List (1) Uterine prolapse: Status: Acute (2) Urinary tract infection, site not specified: Status: Acute (3) Postmenopause atrophic vaginitis: Status: Acute (4) Encounter for surgical aftercare following surgery on the genitourinary system: Status: Acute Plan Return to work clearance: - Patient is ready to return to work following a period of disability. - Current status appears stable and appropriate for work resumption. - Scheduled return date of June 23. Plan: - Clear patient to return to work on June 23. - Provide work clearance letter/note as needed. Pelvic floor muscle strengthening: - Ongoing need for pelvic floor muscle strengthening to maintain bladder strength and function. Plan: - Continue Kegel exercises. - Technique: During urination, stop midstream, hold, then release to strengthen bladder muscles.
[2025-06-13 10:17] VITALS: BP 121/80; PULSE 70; RESP 18; TEMP 36.2; O2SAT 98; BMI 24.3
== END 2025-06-13 10:34 | disposition home or self-care (01) ==
LOC: HODSOBC 10:07
PROVIDERS: Supervising Provider Obstetrics & Gynecology; Visit Provider Obstetrics & Gynecology
DX: Z48.816 Encounter for surgical aftercare following surgery on the genitourinary system (principal); N95.2 Postmenopausal atrophic vaginitis; N81.4 Uterovaginal prolapse, unspecified; N39.0 Urinary tract infection, site not specified; E03.9 Hypothyroidism, unspecified; I10 Essential (primary) hypertension; Z79.890 Hormone replacement therapy; Z79.899 Other long term (current) drug therapy
CPT/HCPCS: 99213; G0463